=== PATIENT | female | born 1985 | race Caucasian/White ===

== ENCOUNTER 2017-10-08 18:06 | Emergency (ER) | payer SELFPAY ==
[2017-10-08] MEDS ORDERED: cefTRIAXone 2 GM in Sodium Chloride 0.9% 50 ML IV ONE (19:27)
[2017-10-08] MEDS ORDERED: Ketorolac 30 MG/ML SDV IVPUSH ONE (19:28)
[2017-10-08] MEDS ORDERED: Sodium Chloride 0.9% 1,000 ML IV SCH ×2 (19:30→21:45)
--- NOTE | 2017-10-08 19:34 | EDM.PDOC ---
ED HPI GENERAL MEDICAL PROBLEM - General Chief Complaint: Genitourinary Problem Stated Complaint: PAIN/KIDNEY INFECTION Time Seen by Provider: 10/08/17 19:19 Source of Information: Reports: Patient History Limitations: Reports: No Limitations - History of Present Illness INITIAL COMMENTS - FREE TEXT/NARRATIVE: bladder/kidney infection; this is a 32 year old female present to ER for worsen bladder infection. reports was seen in Urgent Care, give script for Cipro, has taken 3 dose, now have fever, chills, back and abdominal pain. Took Motrin and Tylenol at 3:330pm and 4pm without relief. denies ; has TL. Onset: Gradual Duration: Getting Worse Location: Reports: Abdomen, Back, Radiates to (low back) Quality: Reports: Ache Severity: Moderate Improves with: Reports: None Worsens with: Reports: None Associated Symptoms: Reports: Fever/Chills Treatments SET ILLUSTRATOR: Reports: Acetaminophen, NSAIDS, Other (see below) (cipro x 3 doses) Flank Pain Score (Numeric/FACES): 8 - Related Data Allergies Allergy/AdvReac Type Severity Reaction Status Date / Time No Known Allergies Allergy Verified 10/08/17 19:21 Home Meds: Home Meds Albuterol Sulfate [Proair Hfa] 1 - 2 puff IH ASDIRECTED PRN 10/08/17 [History] Ciprofloxacin HCl [Cipro] 500 mg PO BID 10/08/17 [History] FLUoxetine [PROzac] 20 mg PO DAILY 10/08/17 [History] Pantoprazole Sodium [Protonix] 40 mg PO DAILY 10/08/17 [History] hydrOXYzine Pamoate [Hydroxyzine Pamoate] 25 mg PO TID PRN 10/08/17 [History] Past Medical History HEENT History: Reports: Impaired Vision Respiratory History: Reports: Asthma, Bronchitis, Recurrent Gastrointestinal History: Reports: GERD, Irritable Bowel Syndrome Genitourinary History: Reports: UTI, Recurrent 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 with 3 children, all under age of 10 years. , doesn't help with children. 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 ED ROS GENERAL - Review of Systems Review Of Systems: See Below Constitutional: Reports: Fever, Chills HEENT: Reports: No Symptoms Respiratory: Reports: No Symptoms Cardiovascular: Reports: No Symptoms Endocrine: Reports: No Symptoms GI/Abdominal: Reports: Abdominal Pain : Reports: Dysuria, Flank Pain, Frequency, Urgency Musculoskeletal: Reports: Back Pain (low) Skin: Reports: No Symptoms Neurological: Reports: No Symptoms Psychiatric: Reports: No Symptoms Hematologic/Lymphatic: Reports: No Symptoms Immunologic: Reports: No Symptoms ED EXAM, GI/ABD - Physical Exam Exam: See Below Exam Limited By: No Limitations General Appearance: Alert, WD/WN, Mild Distress, Thin Eyes: Bilateral: Normal Appearance Ears: Normal External Exam Nose: Normal Inspection, Normal Mucosa, No Blood Throat/Mouth: Normal Inspection, Normal Lips, Normal Teeth, Normal Gums, Normal Oropharynx, Normal Voice, No Airway Compromise Head: Atraumatic, Normocephalic Neck: Normal Inspection, Supple, Non-Tender, Full Range of Motion Respiratory/Chest: No Respiratory Distress, Lungs Clear, Normal Breath Sounds, No Accessory Muscle Use, Chest Non-Tender Cardiovascular: Regular Rate, Rhythm, No Murmur GI/Abdominal Exam: Normal Bowel Sounds, Soft, Tender (low pelvis and flank pain) (Female) Exam: Deferred Rectal (Female) Exam: Deferred Back Exam: Normal Inspection, CVA Tenderness (R), CVA Tenderness (L) Neurological: No Motor/Sensory Deficits Psychiatric: Tearful Skin Exam: Warm, Dry, Intact, Normal Color, No Rash Lymphatic: No Adenopathy Course - Vital Signs Last Recorded V/S: Last Vital Signs Temp 38.5 C H 10/08/17 20:52 Pulse 90 10/08/17 20:52 Resp 18 10/08/17 20:52 BP 109/59 L 10/08/17 20:52 Pulse Ox 97 10/08/17 20:52 - Orders/Labs/Meds Orders: Active Orders 24 hr Category Date Time Status CULTURE URINE [RM] Stat Lab 10/08/17 21:53 Received UA W/MICROSCOPIC [URIN] Urgent Lab 10/08/17 19:20 Ordered Sodium Chloride 0.9% [Normal Saline] 1,000 ml Med 10/08/17 19:30 Active IV ASDIRECTED Sodium Chloride 0.9% [Normal Saline] 1,000 ml Med 10/08/17 21:45 Active IV ASDIRECTED Medication Orders Sodium Chloride (Normal Saline) 1,000 mls @ 999 mls/hr IV ASDIRECTED JASWANT Last Admin: 10/08/17 19:59 Dose: 999 mls/hr Sodium Chloride (Normal Saline) 1,000 mls @ 999 mls/hr IV ASDIRECTED JASWANT Last Admin: 10/08/17 21:56 Dose: 1 mls/hr Labs: Laboratory Tests 10/08/17 10/08/17 10/08/17 Range/Units 19:20 19:40 19:40 WBC 13.6 H (4.5-11.0) K/uL RBC 4.12 (3.30-5.50) M/uL Hgb 12.5 (12.0-15.0) g/dL Hct 37.3 (36.0-48.0) % MCV 91 (80-98) fL MCH 30 (27-31) pg MCHC 34 (32-36) % Plt Count 185 (150-400) K/uL Neut % (Auto) 77 H (36-66) % Lymph % (Auto) 5 L (24-44) % [place] % (Auto) 18 H (2-6) % Eos % (Auto) 0 L (2-4) % Baso % (Auto) 0 (0-1) % Sodium 140 (140-148) mmol/L Potassium 3.7 (3.6-5.2) mmol/L Chloride 103 (100-108) mmol/L Carbon Dioxide 26 (21-32) mmol/L Anion Gap 11.2 (5.0-14.0) mmol/L BUN 6 L (7-18) mg/dL Creatinine 1.0 (0.6-1.0) mg/dL Est Cr Clr Drug Dosing 65.06 mL/min Estimated GFR (MDRD) > 60 (>60) Glucose 118 H (74-106) mg/dL Calcium 8.5 (8.5-10.1) mg/dL Urine Color Yellow Urine Appearance Cloudy Urine pH 6.0 (4.5-8.0) Ur Specific [place] 1.010 (1.008-1.030) Urine Protein 30 H (NEGATIVE) mg/dL Urine Glucose (UA) Normal (NEGATIVE) mg/dL Urine Ketones 15 H (NEGATIVE) mg/dL Urine Occult Blood Large (NEGATIVE) Urine Nitrite Negative (NEGATIVE) Urine Bilirubin Negative (NEGATIVE) Urine Urobilinogen 1 (NORMAL) mg/dL Ur Leukocyte Esterase Moderate (NEGATIVE) Urine RBC Semi-packed H (0-5) Urine WBC Packed H (0-5) Ur Epithelial Cells Moderate Amorphous Sediment Not seen Urine Bacteria Rare Urine Mucus Not seen Meds: Medications Generic Name Dose Route Start Last Admin Trade Name Freq PRN Reason Stop Dose Admin Sodium Chloride 1,000 mls @ 999 mls/hr 10/08/17 19:30 10/08/17 19:59 Normal Saline IV 999 mls/hr ASDIRECTED JASWANT Administration Sodium Chloride 1,000 mls @ 999 mls/hr 10/08/17 21:45 10/08/17 21:56 Normal Saline IV 1 mls/hr ASDIRECTED JASWANT Administration Discontinued Medications Generic Name Dose Route Start Last Admin Trade Name Freq PRN Reason Stop Dose Admin Acetaminophen 650 mg 10/08/17 21:43 10/08/17 21:52 Tylenol PO 10/08/17 21:44 650 mg NOW ONE Administration Hydrocodone Bitart/Acetaminophen 1 tab 10/08/17 21:42 10/08/17 21:53 [place] 325-5 Mg PO 10/08/17 21:43 1 tab ONETIME ONE Administration Ceftriaxone Sodium 2 gm/ 50 mls @ 100 mls/hr 10/08/17 19:27 10/08/17 19:59 Sodium Chloride IV 10/08/17 19:56 100 mls/hr ONETIME ONE Administration Ketorolac Tromethamine 30 mg 10/08/17 19:28 10/08/17 19:58 Toradol IVPUSH 10/08/17 19:29 30 mg ONETIME ONE Administration - Re-Assessments/Exams Free Text/Narrative Re-Assessment/Exam: 10/08/17 19:35 will do labs to rule out pyelonephritis. CBC, BMP, UA with micro- Medications Rocephin 2 g IV, normal saline 1 L, ketorolac 30 mg IV Will await lab results discussed with patient, plan of care she agrees. 10/08/17 19:38 10/08/17 21:47 Ms. Null reports feeling better, still no urge to void, fever reducing will given additional liter of fluids. will plan to discharge to home, with script for Keflex and hydrocodone. Ms. Null agrees with plan of care. 10/08/17 21:57 Ms. Null declines 2nd IV bag of fluids, feeling better. ready for discharge to home. Departure - Departure Time of Disposition: 21:59 Disposition: Home, Self-Care 01 Condition: Good Clinical Impression: Pyelonephritis, UTI, Urinary tract infectious disease - Discharge Information Instructions: Pyelonephritis, Adult, [id number], Urinary Tract Infection, Adult Referrals: PCP,None [Primary Care Provider] - Forms: ED Department Discharge Care Plan Goals: kidney/bladder infection -urine culture pending -start tomorrow, Keflex 500mg take 4 times a day for 10 days -Hydrocodone 5-325mg po every 4 to 6 hours as needed for pain #10 -may take over the counter for Tylenol or Motrin for less severe pain. -advised to rest, push fluids, take medications as directed -Return to ER for any increased pain, fever, chills, painful urination, nausea, vomiting, rash or not improved. - Problem List & Annotations (1) Pyelonephritis SNOMED Code(s): 89114394 Code(s): N12 - TUBULO-INTERSTITIAL NEPHRITIS, NOT SPCF ACUTE OR CHRONIC Status: Acute Priority: High Current Visit: Yes (2) UTI, Urinary tract infectious disease SNOMED Code(s): 15218228 Code(s): N39.0 - URINARY TRACT INFECTION, SITE NOT SPECIFIED Status: Acute Priority: High Current Visit: Yes - Problem List Review Problem List Initiated/Reviewed/Updated: Yes - My Orders Last 24 Hours: My Active Orders 10/08/17 19:20 UA W/MICROSCOPIC [URIN] Urgent 10/08/17 19:30 Sodium Chloride 0.9% [Normal Saline] 1,000 ml IV ASDIRECTED 10/08/17 21:45 Sodium Chloride 0.9% [Normal Saline] 1,000 ml IV ASDIRECTED 10/08/17 21:53 CULTURE URINE [RM] Stat - Assessment/Plan Last 24 Hours: My Active Orders 10/08/17 19:20 UA W/MICROSCOPIC [URIN] Urgent 10/08/17 19:30 Sodium Chloride 0.9% [Normal Saline] 1,000 ml IV ASDIRECTED 10/08/17 21:45 Sodium Chloride 0.9% [Normal Saline] 1,000 ml IV ASDIRECTED 10/08/17 21:53 CULTURE URINE [RM] Stat Plan: kidney/bladder infection -urine culture pending -start tomorrow, Keflex 500mg take 4 times a day for 10 days -Hydrocodone 5-325mg po every 4 to 6 hours as needed for pain #10 -may take over the counter for Tylenol or Motrin for less severe pain. -advised to rest, push fluids, take medications as directed -Return to ER for any increased pain, fever, chills, painful urination, nausea, vomiting, rash or not improved.
[2017-10-08] MEDS ORDERED: Acetaminophen/HYDROcodone 325-5 MG Tab PO ONE (21:42)
[2017-10-08] MEDS ORDERED: Acetaminophen 325 MG Tab PO ONE (21:43)
== END 2017-10-08 22:35 | disposition home or self-care (01) ==
LOC: JP.ED 18:06
DX: N12 Tubulo-interstitial nephritis, not specified as acute or chronic (principal); J45.909 Unspecified asthma, uncomplicated; F17.210 Nicotine dependence, cigarettes, uncomplicated; Z79.899 Other long term (current) drug therapy; Z87.440 Personal history of urinary (tract) infections
CPT/HCPCS: 36415; 80048; 81001; 85025; 87086; 96361; 96365; 96375; 99284; A9270; J0696; J1885; J7030; J7050

== ENCOUNTER 2018-09-07 04:08 | Emergency (ER) | payer MEDICAID, OTHER ==
[2018-09-07] MEDS ORDERED: fentaNYL 100 MCG/2 ML SDV IVPUSH ONE (04:56)
[2018-09-07] MEDS ORDERED: Lactated Ringers 1,000 ML IV ONE ×2 (04:56→06:31)
[2018-09-07] MEDS ORDERED: Sodium Chloride 0.9% 10 ML Syringe FLUSH PRN (04:56)
[2018-09-07] MEDS ORDERED: Silver Sulfadiazine 1% Crm 50 GM Tube TOP ONE (05:06)
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
== END 2018-09-07 08:34 | disposition home or self-care (01) ==
LOC: JP.ED 04:08
DX: T23.051A Burn of unspecified degree of right palm, initial encounter (principal); T23.031A Burn of unspecified degree of multiple right fingers (nail), not including thumb, initial encounter; T24.001A Burn of unspecified degree of unspecified site of right lower limb, except ankle and foot, initial encounter; F17.210 Nicotine dependence, cigarettes, uncomplicated; X08.8XXA Exposure to other specified smoke, fire and flames, initial encounter
CPT/HCPCS: 16020; 96361; 96374; 99282; A9270; J3010; J7120

== ENCOUNTER 2019-06-27 16:01 | Emergency (ER) | payer MEDICAID ==
[2019-06-27] MEDS ORDERED: Bupivacaine 0.5%/EPINEPHrine 1:200,000 1.8 ML Cartridge INJECT ONE (16:48)
--- NOTE | 2019-06-27 16:48 | EDM.PDOC ---
ED HPI GENERAL MEDICAL PROBLEM - General Chief Complaint: ENT Problem Stated Complaint: TOOTHACHE Time Seen by Provider: 06/27/19 16:42 Source of Information: Reports: Patient History Limitations: Reports: No Limitations - History of Present Illness INITIAL COMMENTS - FREE TEXT/NARRATIVE: Patient presents because of left maxillary molar tooth pain. The posterior half of the tooth broke off some time ago and it did not bother her until just the last few days. Pain worsened and she contacted her dentist who recommended that she go in and be evaluated to see if there was infection present. She has a dental appointment next , 01 July. She has been using ibuprofen and other local measures with no change in her comfort level. There are no other teeth bothering her. Onset: Gradual Duration: Day(s): (7) Location: Reports: Head Quality: Reports: Ache, Throbbing Severity: Moderate Improves with: Reports: None Worsens with: Reports: Breathing, Eating Lower Tooth/Teeth Pain Score (Numeric/FACES): 10 - Related Data Allergies Allergy/AdvReac Type Severity Reaction Status Date / Time No Known Allergies Allergy Verified 06/27/19 16:13 Home Meds: Home Meds NK [No Known Home Meds] 09/07/18 [History] Past Medical History HEENT History: Reports: Impaired Vision Respiratory History: Reports: Asthma, Bronchitis, Recurrent Gastrointestinal History: Reports: GERD, Irritable Bowel Syndrome Genitourinary History: Reports: UTI, Recurrent 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: Psychiatric History: Reports: Anxiety - Infectious Disease History Infectious Disease History: Reports: Chicken Pox - Past Surgical History GI Surgical History: Reports: Cholecystectomy Female Surgical History: Reports: Tubal Ligation Social & Family History - Tobacco Use Smoking Status *Q: Current Every Day Smoker Years of Tobacco use: 15 Packs/Tins Daily: 0.5 Used Tobacco, but Quit: No Second Hand Smoke Exposure: Yes - Caffeine Use Caffeine Use: Reports: Soda - Alcohol Use Days Per Week of Alcohol Use: 0 - Recreational Drug Use Recreational Drug Use: No - Living Situation & Occupation Living situation: Reports: , with Family (lives in [place], [place]. with 3 children, all under age of 10 years. , doesn't help with children. 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 ED EXAM, ENT - Physical Exam Exam: See Below Exam Limited By: No Limitations General Appearance: Alert, Moderate Distress Mouth/Throat: Dental Pain (Tooth #15, left maxillary second molar, is fractured in the posterior half of the tooth is gone leaving exposed nerve root. There is some swelling of the adjacent gum tissue area did) Course - Vital Signs Last Recorded V/S: Last Vital Signs Temp 36.2 C 06/27/19 16:17 Pulse 74 06/27/19 16:17 Resp 16 06/27/19 16:17 BP 125/84 06/27/19 16:17 Pulse Ox 98 06/27/19 16:17 - Orders/Labs/Meds Meds: Medications Discontinued Medications Generic Name Dose Route Start Last Admin Trade Name Lidia PRN Reason Stop Dose Admin Bupivacaine HCl/Epinephrine Bitart 1.8 ml 06/27/19 16:48 06/27/19 16:53 Marcaine 0.5%/Epinephrine 1:200,000 INJECT 06/27/19 16:49 1.8 ml ONETIME ONE Administration - Re-Assessments/Exams Free Text/Narrative Re-Assessment/Exam: 06/27/19 17:19 I reviewed options for improving her comfort including a dental Marcaine block and she was interested in receiving that. The procedure was reviewed with the patient and 1 mL of 0.5% bupivacaine with epinephrine was infiltrated between 2 separate injection sites adjacent to the tooth. Within 10 minutes, she was pain- free. I discussed using sugar-free gum or dental wax to cover the exposed portion of the tooth and reduce air irritation. Prescriptions sent for amoxicillin 500 mg, 21 tablets; hydrocodone 5/325 mg, 6 tablets; both use as directed. Keep scheduled dental appointment. Return to ER if feeling worse. Departure - Departure Time of Disposition: 16:53 Disposition: Home, Self-Care 01 Condition: Good Clinical Impression: Dental caries - Discharge Information *PRESCRIPTION DRUG MONITORING PROGRAM REVIEWED*: Not Applicable *COPY OF PRESCRIPTION DRUG MONITORING REPORT IN PATIENT DARELL: Not Applicable Instructions: Tooth Injuries, [id number] Referrals: Noy Allen PA [Primary Care Provider] - Forms: ED Department Discharge Additional Instructions: Continue ibuprofen 800 mg 3 times a day regularly until you see your dentist. You could use a piece of sugar-free gum pressed around the broken tooth to keep air off of that and hopefully more comfortable. The novocaine shot he will get today should help for approximately 6-8 hours. Start the antibiotic today. You may use one of the hydrocodone tablets at bedtime to help to sleep. Keep your scheduled dentist appointment next week. Return to ER if feeling worse in anyway. Sepsis Event Note - Evaluation Sepsis Screening Result: No Definite Risk - Focused Exam Vital Signs: Vital Signs Temp Pulse Resp BP Pulse Ox 06/27/19 16:17 36.2 C 74 16 125/84 98 Date Exam was Performed: 06/27/19 Time Exam was Performed: 17:16
== END 2019-06-27 17:20 | disposition home or self-care (01) ==
LOC: JP.ED 16:01
DX: K02.9 Dental caries, unspecified (principal); J45.909 Unspecified asthma, uncomplicated; F17.210 Nicotine dependence, cigarettes, uncomplicated
CPT/HCPCS: 64400; 99282; 99283; J3490